=== PATIENT | female | born 1980 | race Caucasian/White ===

== ENCOUNTER 2018-09-25 08:35 | Emergency (ER) | payer OTHER ==
[2018-09-25 08:57] VITALS: BP 136/55
--- NOTE | 2018-09-25 09:13 | UC ---
Eye Complaint HPI - HPI Summary HPI Summary: 38-year-old female presents with onset of bilateral eye redness, itching, and purulent drainage. States she woke up this morning with both eyes crusted shut. Reports she used an old makeup remover cloth last night but she thinks was likely used previously. Wears contacts. Denies fever, chills, eye injury, foreign body sensation, visual disturbances, photophobia, or URI symptoms. - History of Current Complaint Chief Complaint: UCEye Stated Complaint: BILATERL EYE CONCERN Time Seen by Provider: 09/25/18 09:05 Hx Obtained From: Patient Hx Last Menstrual Period: 08/30/18 Pain Intensity: 0 - Allergies/Home Medications Allergies/Adverse Reactions: Allergies Allergy/AdvReac Type Severity Reaction Status Date / Time No Known Allergies Allergy Verified 09/25/18 08:51 PMH/Surg Hx/FS Hx/Imm Hx Previously Healthy: Yes - Denies significant PMH - Surgical History Surgical History: None - Family History Known Family History: Positive: Non-Contributory - Social History Occupation: Employed Full-time Lives: With Family Alcohol Use: Occasionally Substance Use Type: None Smoking Status (MU): Never Smoked Tobacco Review of Systems All Other Systems Reviewed And Are Negative: Yes Constitutional: Negative: Fever, Chills Skin: Positive: Negative Eyes: Positive: Drainage, Eye Redness. Negative: Blurred Vision, Diplopia, Photophobia ENT: Negative: Sore Throat, Ear Ache, Nasal Discharge, Sinus Congestion Respiratory: Negative: Shortness Of Breath, Cough Cardiovascular: Negative: Palpitations, Chest Pain Gastrointestinal: Positive: Negative Genitourinary: Positive: Negative Musculoskeletal: Positive: Negative Neurological: Positive: Negative Is Patient Immunocompromised?: No Physical Exam - Summary Physical Exam Summary: GENERAL APPEARANCE: Well developed, well nourished, alert and cooperative, and appears to be in no acute distress. EYES: Bilateral conjunctival erythema with small amount of purulent drainage noted. EOM intact. Vision is grossly intact. EARS: External auditory canals and tympanic membranes clear, hearing grossly intact. NOSE: No nasal discharge. THROAT: Oral cavity and pharynx normal. No inflammation, swelling, exudate, or lesions. Teeth and gingiva in good general condition. NECK: Neck supple, non-tender without lymphadenopathy. CARDIAC: Normal S1 and S2. No S3, S4 or murmurs. Rhythm is regular. There is no peripheral edema, cyanosis or pallor. Extremities are warm and well perfused. Capillary refill is less than 2 seconds. LUNGS: Clear to auscultation without rales, rhonchi, wheezing or diminished breath sounds. ABDOMEN: Positive bowel sounds. Soft, nondistended, nontender. No guarding or rebound. No masses or hepatosplenomegally. MUSKULOSKELETAL: ROM intact to all extremities. No joint erythema or tenderness. Normal muscular development. Normal gait. SKIN: Skin normal color, texture and turgor with no lesions or eruptions. Triage Information Reviewed: Yes Vital Signs: Initial Vital Signs Temp 98.6 F 09/25/18 08:51 Pulse 66 09/25/18 08:51 Resp 14 09/25/18 08:51 BP 136/55 09/25/18 08:51 Pulse Ox 99 09/25/18 08:51 Vital Signs Reviewed: Yes Eye Complaint Course/Dx - Course Course Of Treatment: 38-year-old female presents with onset of bilateral eye redness, itching, and purulent drainage. States she woke up this morning with both eyes crusted shut. Reports she used an old makeup remover cloth last night but she thinks was likely used previously. Wears contacts. Denies fever , chills, eye injury, foreign body sensation, visual disturbances, photophobia, or URI symptoms. Afebrile. Vital signs stable. Exam reveals an adult female in distress with bilateral conjunctival erythema small amount of purulent drainage and otherwise unremarkable exam. Will treat for her bilateral bacterial conjunctivitis with ciprofloxacin ophthalmic 1 drop both eyes every 2 hours while awake 2 days then 1 drop both eyes every 4 hours while awake 5 days. She is to return here or follow-up with her primary care provider in 3 days if symptoms do not improve. Anticipatory guidance and warning symptoms were reviewed with the patient. Verbalizes understanding and agrees with plan of care. - Differential Dx/Diagnosis Differential Diagnosis/HQI/PQRI: Conjunctivitis, Foreign Body, Other - local reaction Provider Diagnosis: Acute bacterial conjunctivitis of both eyes Discharge - Sign-Out/Discharge Documenting (check all that apply): Patient Departure All imaging exams completed and their final reports reviewed: No Studies - Discharge Plan Condition: Stable Disposition: HOME Prescriptions: Ciprofloxacin 0.3% OPTH.LUIS FERNANDO* [Cipro 0.3% Opth*] 1 drop BOTH EYES Q2H #1 btl Patient Education Materials: Conjunctivitis (ED) Referrals: No Primary Care Phys,NOPCP [Primary Care Provider] - Additional Instructions: Start ciprofloxacin 1 drop both eyes every 2 hours while awake for 2 days then 1 drop both eyes every 4 hours while awake for next 5 days. Do not wear your contacts until you have completed the treatment. Throw out the old pair and use a new pair once you have completed you treatment. To avoid reinfection or spreading infection: * Use washcloths and towels once then launder. * Do not share washcloths or towels with others. * Change your pillow case each morning until you have finished treatment. * You should throw out any eye makeup, especially mascara, and use a new one once you have finished treatment. Return here or follow up with your primary care provider in 3 days if no improvement. Seek immediate medical attention in the emergency room if you develop fever greater than 100.5 F, have pain or swelling of the eye, visual disturbances, loss of vision, or any worsening of symptoms. - Billing Disposition and Condition Condition: STABLE Disposition: Home
== END 2018-09-25 09:28 | disposition home or self-care (01) ==
LOC: UCCORT 08:35
DX: H10.33 Unspecified acute conjunctivitis, bilateral (principal); B96.89 Other specified bacterial agents as the cause of diseases classified elsewhere
CPT/HCPCS: 99202; G0463